=== PATIENT | female | born 1980 | race Caucasian/White ===

== ENCOUNTER → 2024-06-19 18:38 | Outpatient (REF) | payer BC, SELFPAY | LOC: WDC 18:38 | PROVIDERS: ATTENDING PHYSICIAN Surgery; FAMILY PHYSICIAN Family Medicine | DX: Z12.31 Encounter for screening mammogram for malignant neoplasm of breast (principal); Z80.3 Family history of malignant neoplasm of breast | CPT/HCPCS: 77063; 77067 ==

== ENCOUNTER 2024-10-07 02:03 | Emergency (ER) | payer BC, SELFPAY ==
[2024-10-07 02:04] VITALS: BP 137/64
--- NOTE | 2024-10-07 03:29 | ED.SKININJ ---
HPI-Injury
General
Chief Complaint: Bite
Source: patient
Exam Limitations: none
Time Seen by Provider: 10/07/24 03:12
Nursing documentation reviewed up to this point in time: agreed with
History of Present Illness-Injury
Initial Injury comments:
This is a 44-year-old woman with no significant past medical history who states she was lying on her couch with her dog next to her when her other dog jumped onto the couch, startled her dog sitting next to her. The dog was startled, jumped up and
inadvertently struck her forehead/right brow with her mouth and patient suffered a small laceration/puncture wound right superior brow. She did irrigate with normal saline at home and applied a Band-Aid. Dog has never bitten anyone in the past.
Dog is up-to-date with immunizations.
Patient's last Tdap was 8-1/2 years ago with her last .
Patient states she was treated for right otitis media several weeks ago with a course of Augmentin. Right ear pain has for the most part resolved but she does note intermittent pressure to her right ear. She has not had a fever. No rhinorrhea or
sinus congestion, no sore throat, no cough.
Past History
Past History
ED Past Medical History: None
ED Past Surgical History: Other (Oral surgery)
Social History
Tobacco: Non-smoker
Alcohol: None
Personal:
Living: with family
Employment: Employed
Family History
Family History: Other (There is cancer of the kidney, breast and there are history of gallbladder disease)
Phy Exam
Physical Exam
Physical Exam:
GENERAL: 44-year-old woman appears her stated age, awake and alert, pleasant, appears in no acute distress.
EYE: pupils equal and reactive. Extraocular muscles intact. Anicteric. There is a minute superficial puncture wound right superior brow with surrounding mild soft tissue contusion. No hematoma, no bleeding. Minimal local tenderness to palpation.
NECK: Supple, nontender, no meningismus, no significant adenopathy.
ENT: posterior pharynx is clear, oral mucosa is moist. Right TM is retracted without injection nor effusion, left TM is clear. Nares have moderately boggy turbinates without rhinorrhea nor mucopus.
CARDIAC: Regular rate and rhythm. no murmur.
LUNGS: Clear breath sounds bilaterally, no acute respiratory distress, no wheezes/rales/rhonchi
ABDOMEN: Soft, nondistended, without focal tenderness, no r/g, no cvat. normoactive BS.
NEUROLOGICAL: Alert and oriented x3, no focal neuro deficits. Gait is grimes and steady.
SKIN: Warm and dry, normal color, no rash.
MUSCULOSKELETAL: No C/C/E. peripheral pulses are full and equal b/l. No palpable tenderness.
PSYCH: Normal and appropriate interaction.
Course
Orders/Labs/Results
Orders:
Orders
10/07/24 03:28
Wound Dressing- Treatment ONCE
Location of Wound: right brow
Treatment of Wound: bacitracin, bandaid
Amoxicillin 875 mg/Clav 125 mg [Augmentin 875 mg/125 mg] 1 tablet PO NOW STA
Tetanus/Diphth/Acelpertussis [Adacel] 0.5 ml IM .ONCE ONE
Vital Signs
Initial and Last Documented VS:
Initial Vital Signs
Temp Pulse Resp BP Pulse Ox
98.2 F 61 18 137/64 99
10/07/24 02:04 10/07/24 02:04 10/07/24 02:04 10/07/24 02:04 10/07/24 02:04
Last Documented Vital Signs
Temp Pulse Resp BP Pulse Ox
98.2 F 61 18 137/64 99
10/07/24 02:04 10/07/24 02:04 10/07/24 02:04 10/07/24 02:04 10/07/24 02:04
MDM/Problems Addressed
Differential Diagnosis Includes:
Patient presents with minute dog bite wound versus focal puncture/contusion from her dog's mouth. This puncture is superficial, not in need of repair.
Area has been thoroughly irrigated with normal saline solution. Will apply bacitracin a Band-Aid and will initiate a course of Augmentin for infection prevention.
On a side note, patient notes intermittent pressure in her right ear and exam notable for retracted TM on the right without evidence of infection. Consistent with eustachian tube dysfunction. Recommend trial of Flonase nasal spray.
Will update Tdap.
No indication for imaging nor laboratory studies.
Recommend follow-up with PCP for recheck.
*Pulse Oximetry
Patient hypoxic: no
*Critical Care Note
Total Time (30-74mins, 75-104mins- exclusive of procedures): Not Applicable
ED Attending Note
-
Portions of this chart may have been created with voice recognition software.� Occasional wrong word or��sound alike� substitutions may have occurred due to the inherent limitations of voice recognition software.
Discharge Plan
Departure
Patient Disposition: Home (Routine Discharge)
Date of Disposition: 10/07/24
Time of Disposition: 03:29
Patient with high blood pressure during this ER visit?: No
Condition: Good
Discharge Problem:
dog bite wound right brow, Acute dysfunction of right eustachian tube
Instructions: Animal and human bites, Eustachian tube problems, Tdap vaccine
Prescriptions:
New
fluticasone propionate 50 mcg/actuation spray,suspension
2 spray intranasal DAILY Qty: 16 0RF
amoxicillin-pot clavulanate 875-125 mg tablet
1 tab PO BID Qty: 14 0RF
No Action
B Complex Sublingual Liquid
1 tab PO DAILY
Multivitamin
1 tab PO DAILY
Vitamin D3
1 tab PO DAILY
Referrals:
Raissa Garcia, DO [Family Provider] - As needed
Interventions
Interventions:
*Risk Screen - Suicide Last Done: 10/07/24 02:04
*General Assessment Last Done: 10/07/24 02:04
*Neglect/Abuse Screening Last Done: 10/07/24 02:04
*ED COVID-19 Vaccine History Last Done: 10/07/24 02:04
Discharge Date and Time
Print Language: ROMANSH
[2024-10-07] MEDS: AUGMENTIN 875 MG/125 MG 1 TABLET PO (03:31)
[2024-10-07] MEDS: ADACEL 0.5 ML IM (03:32)
== END 2024-10-07 03:37 | disposition home or self-care (01) ==
LOC: EMR 02:03
PROVIDERS: EMERGENCY PHYSICIAN Emergency Medicine; FAMILY PHYSICIAN Family Medicine
DX: S01.83XA Puncture wound without foreign body of other part of head, initial encounter (principal); W54.0XXA Bitten by dog, initial encounter; H69.91 Unspecified Eustachian tube disorder, right ear; Z23 Encounter for immunization
CPT/HCPCS: 99282; 90471; 90715

== ENCOUNTER → 2024-12-18 16:57 | Outpatient (REF) | payer BC, SELFPAY | LOC: MRI 3T 16:57 | PROVIDERS: ATTENDING PHYSICIAN Surgery; FAMILY PHYSICIAN Family Medicine | DX: R92.2 Inconclusive mammogram (principal); Z80.3 Family history of malignant neoplasm of breast; Z91.89 Other specified personal risk factors, not elsewhere classified | CPT/HCPCS: 77049; A9585 ==

== ENCOUNTER 2025-06-19 06:24 | Day surgery (SDC) | payer BC, SELFPAY | END 2025-06-19 11:39 | disposition home or self-care (01) | LOC: GI 06:24 | PROVIDERS: ATTENDING PHYSICIAN Internal Medicine Gastroenterology | DX: K29.50 Unspecified chronic gastritis without bleeding (principal); K20.0 Eosinophilic esophagitis; K44.9 Diaphragmatic hernia without obstruction or gangrene; K31.89 Other diseases of stomach and duodenum; R13.10 Dysphagia, unspecified | CPT/HCPCS: 43239; 88305; 88342 ==

== ENCOUNTER → 2025-06-20 18:34 | Outpatient (REF) | payer BC, SELFPAY | LOC: WDC 18:34 | PROVIDERS: ATTENDING PHYSICIAN Surgery; FAMILY PHYSICIAN Family Medicine | DX: Z12.31 Encounter for screening mammogram for malignant neoplasm of breast (principal) | CPT/HCPCS: 77063; 77067 ==